=== PATIENT | female | born 1955 | race African-American/Black ===

== ENCOUNTER 2017-01-05 10:23 | Inpatient (IN) | payer OTHER ==
[2017-01-05 14:16] VITALS: BMI 25.5
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
[2017-01-05] MEDS ORDERED: MENTHOL/PHENOL 1 EACH UD MM PRN (16:03)
[2017-01-05] MEDS ORDERED: IBUPROFEN 400 MG TABLET (FP) PO PRN (16:03)
[2017-01-05] MEDS ORDERED: MAGNESIUM CITRATE 300 ML BOTTLE PO PRN (16:03)
[2017-01-05] MEDS ORDERED: ACETAMINOPHEN 325 MG TABLET (FP) PO PRN (16:03)
[2017-01-05] MEDS ORDERED: MAGNESIUM HYDROX 2400MG/30ML ORAL SUSPENSION 30 ML CUP PO PRN (16:03)
[2017-01-05] MEDS ORDERED: guaiFENesin/D-METHORPHAN HB 10 ML UNIT-DOSE CUPS PO PRN (16:03)
[2017-01-05] MEDS ORDERED: MAG HYDROX/AL HYDROX/SIMETH 30 ML UNIT-DOSE CUP PO PRN (16:03)
[2017-01-05] MEDS ORDERED: LOPERAMIDE HCL 2 MG CAPSULE PO PRN (16:03)
[2017-01-05] MEDS ORDERED: P-EPHED 60MG/TRIPROLIDI 2.5MG TABLET PO PRN (16:03)
[2017-01-05] MEDS ORDERED: DOCUSATE SODIUM 100 MG CAPSULE (FP) PO PRN (16:14)
[2017-01-05] MEDS ORDERED: TUBERCULIN PPD 5 TU/0.1ML VIAL ID ONE (18:55)
[2017-01-05] MEDS: THIAMINE HCL 100 MG TABLET (FP) PO SCH (22:18)
[2017-01-05] MEDS: SENNOSIDES 8.6MG TABLET (FP) PO SCH (22:18)
[2017-01-05 23:05] LABS: URINE APPEARANCE CLEAR; URINE BILIRUBIN NEGATIVE (NEGATIVE); URINE BLOOD NEGATIVE (NEGATIVE); URINE COLOR DKYELLOW; URINE GLUCOSE (UA) NEGATIVE (NEGATIVE); URINE KETONE TRACE (NEGATIVE); URINE LEUK ESTERASE NEGATIVE (NEGATIVE); URINE NITRITE NEGATIVE (NEGATIVE); URINE UROBILINOGEN NEGATIVE E.U./dl (0.2-1.0)
[2017-01-05 23:10] LABS: URINE PROTEIN 1+ (NEGATIVE)
[2017-01-05 23:11] LABS: URINE HYALINE CAST 3 /lpf; URINE MUCUS FEW; URINE RBC 1 /hpf (0-3); URINE WBC 4 /hpf (3-5)
[2017-01-06] MEDS: amLODIPine BESYLATE 10 MG TABLET (FP) PO SCH (09:16)
[2017-01-06] MEDS: ASPIRIN COATED 81 MG TABLET.EC PO SCH (09:16)
[2017-01-06] MEDS: LISINOPRIL 10 MG TABLET (FP) PO SCH (09:16)
[2017-01-06] MEDS: PRENATAL VITAMINS W/ FOLIC ACID TABLET (FP) PO SCH (09:16)
[2017-01-06] MEDS: ATORVASTATIN CA 20 MG TABLET (FP) PO SCH (09:16)
--- NOTE | 2017-01-06 10:07 | EKG ---
Test Reason : Blood Pressure : / mmHG Vent. Rate : 071 BPM Atrial Rate : 071 BPM P-R Int : 156 ms QRS Dur : 078 ms QT Int : 410 ms P-R-T Axes : 065 021 036 degrees QTc Int : 445 ms NORMAL SINUS RHYTHM CANNOT RULE OUT ANTERIOR INFARCT , AGE UNDETERMINED ABNORMAL ECG NO PREVIOUS ECGS AVAILABLE Confirmed by AGUEDA HARPER MD ([id number]) on 01/06/2017 10:07:24 AM Referred By: Charanjit Champion Confirmed By:AGUEDA HARPER MD
[2017-01-06 10:32] LABS: MCH 26.8 pg (25.7-33.7); MEAN CELL VOLUME 81.1 fl (80-96); MEAN PLT VOLUME 9.3 fl (7.5-11.1); PLATELET COUNT 362 K/MM3 (134-434); RDW 15.1 % (11.6-15.6); WHITE BLOOD COUNT 10.8 K/mm3 (4.0-10.0)
[2017-01-06 11:34] LABS: ALBUMIN 3.6 g/dl (3.4-5.0); ALK PHOS 105 U/L (45-117); ANION GAP 8 (8-16); BILIRUBIN,TOTAL 0.5 mg/dL (0.2-1.0); CALCIUM 9.1 mg/dL (8.5-10.1); CO2 26 mmol/L (21-32); CREATININE 0.7 mg/dL (0.55-1.02); GLUCOSE,RANDOM 89 mg/dL (74-106); SGOT/AST 15 U/L (15-37); SGPT/ALT 19 U/L (12-78); TOT PROT 7.5 g/dl (6.4-8.2)
[2017-01-06] MEDS ORDERED: PT OWN MED DRAWER 7, Y5N ONE (19:30)
[2017-01-06] MEDS: THIAMINE HCL 100 MG TABLET (FP) PO SCH (21:54)
[2017-01-06] MEDS: SENNOSIDES 8.6MG TABLET (FP) PO SCH (21:54)
[2017-01-07] MEDS ORDERED: PT OWN MED DRAWER 7, Y5N ONE ×2 (08:37→17:41)
[2017-01-07] MEDS: ASPIRIN COATED 81 MG TABLET.EC PO SCH (09:58)
[2017-01-07] MEDS: LISINOPRIL 10 MG TABLET (FP) PO SCH (09:59)
[2017-01-07] MEDS: ATORVASTATIN CA 20 MG TABLET (FP) PO SCH (09:59)
[2017-01-07] MEDS: amLODIPine BESYLATE 10 MG TABLET (FP) PO SCH (09:59)
[2017-01-07] MEDS: PRENATAL VITAMINS W/ FOLIC ACID TABLET (FP) PO SCH (09:59)
[2017-01-07] MEDS: THIAMINE HCL 100 MG TABLET (FP) PO SCH (22:06)
[2017-01-07] MEDS: SENNOSIDES 8.6MG TABLET (FP) PO SCH (22:07)
[2017-01-08] MEDS: ATORVASTATIN CA 20 MG TABLET (FP) PO SCH (10:33)
[2017-01-08] MEDS: PRENATAL VITAMINS W/ FOLIC ACID TABLET (FP) PO SCH (10:33)
[2017-01-08] MEDS: LISINOPRIL 10 MG TABLET (FP) PO SCH (10:33)
[2017-01-08] MEDS: amLODIPine BESYLATE 10 MG TABLET (FP) PO SCH (10:33)
[2017-01-08] MEDS: ASPIRIN COATED 81 MG TABLET.EC PO SCH (10:33)
[2017-01-08] MEDS ORDERED: COLLOIDAL OATMEAL 1 BAR EACH TP PRN (13:43)
[2017-01-08] MEDS ORDERED: PT OWN MED DRAWER 7, Y5N ONE (19:44)
[2017-01-08] MEDS: THIAMINE HCL 100 MG TABLET (FP) PO SCH (21:43)
[2017-01-08] MEDS: SENNOSIDES 8.6MG TABLET (FP) PO SCH (21:43)
[2017-01-09] MEDS: amLODIPine BESYLATE 10 MG TABLET (FP) PO SCH (10:25)
[2017-01-09] MEDS: ASPIRIN COATED 81 MG TABLET.EC PO SCH (10:25)
[2017-01-09] MEDS: LISINOPRIL 10 MG TABLET (FP) PO SCH (10:25)
[2017-01-09] MEDS: ATORVASTATIN CA 20 MG TABLET (FP) PO SCH (10:25)
[2017-01-09] MEDS: PRENATAL VITAMINS W/ FOLIC ACID TABLET (FP) PO SCH (10:25)
[2017-01-09] MEDS: SENNOSIDES 8.6MG TABLET (FP) PO SCH (21:48)
[2017-01-09] MEDS: THIAMINE HCL 100 MG TABLET (FP) PO SCH (21:48)
[2017-01-10] MEDS: ATORVASTATIN CA 20 MG TABLET (FP) PO SCH (10:22)
[2017-01-10] MEDS: PRENATAL VITAMINS W/ FOLIC ACID TABLET (FP) PO SCH (10:22)
[2017-01-10] MEDS: ASPIRIN COATED 81 MG TABLET.EC PO SCH (10:23)
[2017-01-10] MEDS: LISINOPRIL 10 MG TABLET (FP) PO SCH (10:23)
[2017-01-10] MEDS: amLODIPine BESYLATE 10 MG TABLET (FP) PO SCH (10:23)
[2017-01-10] MEDS: SENNOSIDES 8.6MG TABLET (FP) PO SCH (21:36)
[2017-01-10] MEDS: THIAMINE HCL 100 MG TABLET (FP) PO SCH (21:36)
[2017-01-10] MEDS: diphenhydrAMINE HCL 50 MG CAPSULE PO PRN (21:36)
[2017-01-11] MEDS: ATORVASTATIN CA 20 MG TABLET (FP) PO SCH (10:47)
[2017-01-11] MEDS: LISINOPRIL 10 MG TABLET (FP) PO SCH (10:47)
[2017-01-11] MEDS: PRENATAL VITAMINS W/ FOLIC ACID TABLET (FP) PO SCH (10:47)
[2017-01-11] MEDS: ASPIRIN COATED 81 MG TABLET.EC PO SCH (10:47)
[2017-01-11] MEDS: amLODIPine BESYLATE 10 MG TABLET (FP) PO SCH (10:47)
[2017-01-11] MEDS: THIAMINE HCL 100 MG TABLET (FP) PO SCH (21:33)
[2017-01-11] MEDS: SENNOSIDES 8.6MG TABLET (FP) PO SCH (21:33)
[2017-01-12] MEDS: PRENATAL VITAMINS W/ FOLIC ACID TABLET (FP) PO SCH (10:30)
[2017-01-12] MEDS: LISINOPRIL 10 MG TABLET (FP) PO SCH (10:31)
[2017-01-12] MEDS: amLODIPine BESYLATE 10 MG TABLET (FP) PO SCH (10:31)
[2017-01-12] MEDS: ASPIRIN COATED 81 MG TABLET.EC PO SCH (10:31)
[2017-01-12] MEDS: ATORVASTATIN CA 20 MG TABLET (FP) PO SCH (10:31)
[2017-01-12] MEDS: THIAMINE HCL 100 MG TABLET (FP) PO SCH (21:47)
[2017-01-12] MEDS: SENNOSIDES 8.6MG TABLET (FP) PO SCH (21:47)
[2017-01-13] MEDS: PRENATAL VITAMINS W/ FOLIC ACID TABLET (FP) PO SCH (10:13)
[2017-01-13] MEDS: amLODIPine BESYLATE 10 MG TABLET (FP) PO SCH (10:13)
[2017-01-13] MEDS: ATORVASTATIN CA 20 MG TABLET (FP) PO SCH (10:13)
[2017-01-13] MEDS: ASPIRIN COATED 81 MG TABLET.EC PO SCH (10:13)
[2017-01-13] MEDS: LISINOPRIL 10 MG TABLET (FP) PO SCH (10:13)
[2017-01-13] MEDS: THIAMINE HCL 100 MG TABLET (FP) PO SCH (21:28)
[2017-01-13] MEDS: SENNOSIDES 8.6MG TABLET (FP) PO SCH (21:28)
[2017-01-14] MEDS: PRENATAL VITAMINS W/ FOLIC ACID TABLET (FP) PO SCH (10:15)
[2017-01-14] MEDS: ASPIRIN COATED 81 MG TABLET.EC PO SCH (10:15)
[2017-01-14] MEDS: amLODIPine BESYLATE 10 MG TABLET (FP) PO SCH (10:15)
[2017-01-14] MEDS: LISINOPRIL 10 MG TABLET (FP) PO SCH (10:15)
[2017-01-14] MEDS: ATORVASTATIN CA 20 MG TABLET (FP) PO SCH (10:15)
[2017-01-14] MEDS: THIAMINE HCL 100 MG TABLET (FP) PO SCH (21:36)
[2017-01-14] MEDS: SENNOSIDES 8.6MG TABLET (FP) PO SCH (21:36)
[2017-01-15] MEDS: PRENATAL VITAMINS W/ FOLIC ACID TABLET (FP) PO SCH (10:21)
[2017-01-15] MEDS: amLODIPine BESYLATE 10 MG TABLET (FP) PO SCH (10:21)
[2017-01-15] MEDS: ASPIRIN COATED 81 MG TABLET.EC PO SCH (10:21)
[2017-01-15] MEDS: ATORVASTATIN CA 20 MG TABLET (FP) PO SCH (10:21)
[2017-01-15] MEDS: LISINOPRIL 10 MG TABLET (FP) PO SCH (10:21)
[2017-01-15] MEDS: SENNOSIDES 8.6MG TABLET (FP) PO SCH (21:24)
[2017-01-15] MEDS: THIAMINE HCL 100 MG TABLET (FP) PO SCH (21:24)
[2017-01-16] MEDS: ASPIRIN COATED 81 MG TABLET.EC PO SCH (10:05)
[2017-01-16] MEDS: amLODIPine BESYLATE 10 MG TABLET (FP) PO SCH (10:05)
[2017-01-16] MEDS: ATORVASTATIN CA 20 MG TABLET (FP) PO SCH (10:05)
[2017-01-16] MEDS: LISINOPRIL 10 MG TABLET (FP) PO SCH (10:05)
[2017-01-16] MEDS: PRENATAL VITAMINS W/ FOLIC ACID TABLET (FP) PO SCH (10:05)
[2017-01-16] MEDS: SENNOSIDES 8.6MG TABLET (FP) PO SCH (21:30)
[2017-01-16] MEDS: diphenhydrAMINE HCL 50 MG CAPSULE PO PRN (21:30)
[2017-01-16] MEDS: THIAMINE HCL 100 MG TABLET (FP) PO SCH (21:30)
[2017-01-17] MEDS: ATORVASTATIN CA 20 MG TABLET (FP) PO SCH (10:10)
[2017-01-17] MEDS: ASPIRIN COATED 81 MG TABLET.EC PO SCH (10:10)
[2017-01-17] MEDS: amLODIPine BESYLATE 10 MG TABLET (FP) PO SCH (10:10)
[2017-01-17] MEDS: PRENATAL VITAMINS W/ FOLIC ACID TABLET (FP) PO SCH (10:10)
[2017-01-17] MEDS: LISINOPRIL 10 MG TABLET (FP) PO SCH (10:11)
[2017-01-17] MEDS: THIAMINE HCL 100 MG TABLET (FP) PO SCH (21:27)
[2017-01-17] MEDS: diphenhydrAMINE HCL 50 MG CAPSULE PO PRN (21:27)
[2017-01-17] MEDS: SENNOSIDES 8.6MG TABLET (FP) PO SCH (21:27)
[2017-01-18] MEDS: ATORVASTATIN CA 20 MG TABLET (FP) PO SCH (10:10)
[2017-01-18] MEDS: ASPIRIN COATED 81 MG TABLET.EC PO SCH (10:10)
[2017-01-18] MEDS: amLODIPine BESYLATE 10 MG TABLET (FP) PO SCH (10:10)
[2017-01-18] MEDS: PRENATAL VITAMINS W/ FOLIC ACID TABLET (FP) PO SCH (10:10)
[2017-01-18] MEDS: LISINOPRIL 10 MG TABLET (FP) PO SCH (10:10)
[2017-01-18] MEDS: SENNOSIDES 8.6MG TABLET (FP) PO SCH (21:34)
[2017-01-18] MEDS: THIAMINE HCL 100 MG TABLET (FP) PO SCH (21:34)
[2017-01-18] MEDS: diphenhydrAMINE HCL 50 MG CAPSULE PO PRN (21:35)
[2017-01-19] MEDS: LISINOPRIL 10 MG TABLET (FP) PO SCH (10:07)
[2017-01-19] MEDS: ASPIRIN COATED 81 MG TABLET.EC PO SCH (10:07)
[2017-01-19] MEDS: ATORVASTATIN CA 20 MG TABLET (FP) PO SCH (10:07)
[2017-01-19] MEDS: amLODIPine BESYLATE 10 MG TABLET (FP) PO SCH (10:07)
[2017-01-19] MEDS: PRENATAL VITAMINS W/ FOLIC ACID TABLET (FP) PO SCH (10:07)
[2017-01-19] MEDS: SENNOSIDES 8.6MG TABLET (FP) PO SCH (21:09)
[2017-01-19] MEDS: THIAMINE HCL 100 MG TABLET (FP) PO SCH (21:09)
[2017-01-19] MEDS: diphenhydrAMINE HCL 50 MG CAPSULE PO PRN (21:09)
[2017-01-20] MEDS: ASPIRIN COATED 81 MG TABLET.EC PO SCH (09:54)
[2017-01-20] MEDS: PRENATAL VITAMINS W/ FOLIC ACID TABLET (FP) PO SCH (09:54)
[2017-01-20] MEDS: LISINOPRIL 10 MG TABLET (FP) PO SCH (09:54)
[2017-01-20] MEDS: ATORVASTATIN CA 20 MG TABLET (FP) PO SCH (09:54)
[2017-01-20] MEDS: amLODIPine BESYLATE 10 MG TABLET (FP) PO SCH (09:54)
[2017-01-20] MEDS: SENNOSIDES 8.6MG TABLET (FP) PO SCH (21:30)
[2017-01-20] MEDS: THIAMINE HCL 100 MG TABLET (FP) PO SCH (21:30)
[2017-01-20] MEDS: diphenhydrAMINE HCL 50 MG CAPSULE PO PRN (21:30)
[2017-01-21] MEDS: ATORVASTATIN CA 20 MG TABLET (FP) PO SCH (10:06)
[2017-01-21] MEDS: LISINOPRIL 10 MG TABLET (FP) PO SCH (10:06)
[2017-01-21] MEDS: ASPIRIN COATED 81 MG TABLET.EC PO SCH (10:06)
[2017-01-21] MEDS: amLODIPine BESYLATE 10 MG TABLET (FP) PO SCH (10:07)
[2017-01-21] MEDS: PRENATAL VITAMINS W/ FOLIC ACID TABLET (FP) PO SCH (10:07)
[2017-01-21] MEDS: THIAMINE HCL 100 MG TABLET (FP) PO SCH (21:26)
[2017-01-21] MEDS: diphenhydrAMINE HCL 50 MG CAPSULE PO PRN (21:26)
[2017-01-21] MEDS: SENNOSIDES 8.6MG TABLET (FP) PO SCH (21:26)
[2017-01-22] MEDS ORDERED: PT OWN MED DRAWER 7, Y5N ONE (08:28)
[2017-01-22] MEDS: amLODIPine BESYLATE 10 MG TABLET (FP) PO SCH (10:19)
[2017-01-22] MEDS: ASPIRIN COATED 81 MG TABLET.EC PO SCH (10:19)
[2017-01-22] MEDS: PRENATAL VITAMINS W/ FOLIC ACID TABLET (FP) PO SCH (10:19)
[2017-01-22] MEDS: ATORVASTATIN CA 20 MG TABLET (FP) PO SCH (10:19)
[2017-01-22] MEDS: LISINOPRIL 10 MG TABLET (FP) PO SCH (10:20)
[2017-01-22] MEDS: SENNOSIDES 8.6MG TABLET (FP) PO SCH (21:30)
[2017-01-22] MEDS: THIAMINE HCL 100 MG TABLET (FP) PO SCH (21:30)
[2017-01-22] MEDS: diphenhydrAMINE HCL 50 MG CAPSULE PO PRN (21:31)
[2017-01-23] MEDS: LISINOPRIL 10 MG TABLET (FP) PO SCH (10:14)
[2017-01-23] MEDS: ASPIRIN COATED 81 MG TABLET.EC PO SCH (10:14)
[2017-01-23] MEDS: ATORVASTATIN CA 20 MG TABLET (FP) PO SCH (10:14)
[2017-01-23] MEDS: amLODIPine BESYLATE 10 MG TABLET (FP) PO SCH (10:14)
[2017-01-23] MEDS: PRENATAL VITAMINS W/ FOLIC ACID TABLET (FP) PO SCH (10:15)
[2017-01-23] MEDS: SENNOSIDES 8.6MG TABLET (FP) PO SCH (21:44)
[2017-01-23] MEDS: diphenhydrAMINE HCL 50 MG CAPSULE PO PRN (21:44)
[2017-01-23] MEDS: THIAMINE HCL 100 MG TABLET (FP) PO SCH (21:44)
[2017-01-24] MEDS: ATORVASTATIN CA 20 MG TABLET (FP) PO SCH (10:12)
[2017-01-24] MEDS: amLODIPine BESYLATE 10 MG TABLET (FP) PO SCH (10:12)
[2017-01-24] MEDS: LISINOPRIL 10 MG TABLET (FP) PO SCH (10:12)
[2017-01-24] MEDS: ASPIRIN COATED 81 MG TABLET.EC PO SCH (10:12)
[2017-01-24] MEDS: PRENATAL VITAMINS W/ FOLIC ACID TABLET (FP) PO SCH (10:13)
[2017-01-24] MEDS: SENNOSIDES 8.6MG TABLET (FP) PO SCH (21:44)
[2017-01-24] MEDS: THIAMINE HCL 100 MG TABLET (FP) PO SCH (21:44)
[2017-01-24] MEDS: diphenhydrAMINE HCL 50 MG CAPSULE PO PRN (21:45)
[2017-01-25] MEDS: PRENATAL VITAMINS W/ FOLIC ACID TABLET (FP) PO SCH (10:21)
[2017-01-25] MEDS: ATORVASTATIN CA 20 MG TABLET (FP) PO SCH (10:21)
[2017-01-25] MEDS: amLODIPine BESYLATE 10 MG TABLET (FP) PO SCH (10:21)
[2017-01-25] MEDS: LISINOPRIL 10 MG TABLET (FP) PO SCH (10:21)
[2017-01-25] MEDS: ASPIRIN COATED 81 MG TABLET.EC PO SCH (10:21)
[2017-01-25] MEDS: SENNOSIDES 8.6MG TABLET (FP) PO SCH (21:32)
[2017-01-25] MEDS: THIAMINE HCL 100 MG TABLET (FP) PO SCH (21:32)
[2017-01-25] MEDS: diphenhydrAMINE HCL 50 MG CAPSULE PO PRN (21:32)
[2017-01-26] MEDS: ASPIRIN COATED 81 MG TABLET.EC PO SCH (10:31)
[2017-01-26] MEDS: ATORVASTATIN CA 20 MG TABLET (FP) PO SCH (10:31)
[2017-01-26] MEDS: LISINOPRIL 10 MG TABLET (FP) PO SCH (10:31)
[2017-01-26] MEDS: amLODIPine BESYLATE 10 MG TABLET (FP) PO SCH (10:31)
[2017-01-26] MEDS: PRENATAL VITAMINS W/ FOLIC ACID TABLET (FP) PO SCH (10:31)
[2017-01-26] MEDS: diphenhydrAMINE HCL 50 MG CAPSULE PO PRN (21:50)
[2017-01-26] MEDS: THIAMINE HCL 100 MG TABLET (FP) PO SCH (21:51)
[2017-01-26] MEDS: SENNOSIDES 8.6MG TABLET (FP) PO SCH (21:51)
[2017-01-27] MEDS: diphenhydrAMINE HCL 50 MG CAPSULE PO PRN ×2 (00:18→21:42)
[2017-01-27] MEDS: ATORVASTATIN CA 20 MG TABLET (FP) PO SCH (10:06)
[2017-01-27] MEDS: amLODIPine BESYLATE 10 MG TABLET (FP) PO SCH (10:06)
[2017-01-27] MEDS: ASPIRIN COATED 81 MG TABLET.EC PO SCH (10:06)
[2017-01-27] MEDS: PRENATAL VITAMINS W/ FOLIC ACID TABLET (FP) PO SCH (10:06)
[2017-01-27] MEDS: LISINOPRIL 10 MG TABLET (FP) PO SCH (10:07)
[2017-01-27] MEDS: THIAMINE HCL 100 MG TABLET (FP) PO SCH (21:42)
[2017-01-27] MEDS: SENNOSIDES 8.6MG TABLET (FP) PO SCH (21:42)
[2017-01-28] MEDS: amLODIPine BESYLATE 10 MG TABLET (FP) PO SCH (10:10)
[2017-01-28] MEDS: PRENATAL VITAMINS W/ FOLIC ACID TABLET (FP) PO SCH (10:10)
[2017-01-28] MEDS: LISINOPRIL 10 MG TABLET (FP) PO SCH (10:10)
[2017-01-28] MEDS: ASPIRIN COATED 81 MG TABLET.EC PO SCH (10:10)
[2017-01-28] MEDS: ATORVASTATIN CA 20 MG TABLET (FP) PO SCH (10:10)
[2017-01-28] MEDS: diphenhydrAMINE HCL 50 MG CAPSULE PO PRN (21:48)
[2017-01-28] MEDS: SENNOSIDES 8.6MG TABLET (FP) PO SCH (21:49)
[2017-01-28] MEDS: THIAMINE HCL 100 MG TABLET (FP) PO SCH (21:49)
[2017-01-29] MEDS: PRENATAL VITAMINS W/ FOLIC ACID TABLET (FP) PO SCH (10:15)
[2017-01-29] MEDS: ASPIRIN COATED 81 MG TABLET.EC PO SCH (10:15)
[2017-01-29] MEDS: ATORVASTATIN CA 20 MG TABLET (FP) PO SCH (10:15)
[2017-01-29] MEDS: amLODIPine BESYLATE 10 MG TABLET (FP) PO SCH (10:15)
[2017-01-29] MEDS: LISINOPRIL 10 MG TABLET (FP) PO SCH (10:16)
--- NOTE | 2017-01-29 14:42 | PN ---
[facility] Progress Note Note: Blister rt. index,clear fluid drained,bacitracin sathya't applied & covered.
[2017-01-29] MEDS: BACITRACIN 0.9 GM PACKET TP SCH (15:34)
[2017-01-29] MEDS: diphenhydrAMINE HCL 50 MG CAPSULE PO PRN (21:42)
[2017-01-29] MEDS: SENNOSIDES 8.6MG TABLET (FP) PO SCH (21:42)
[2017-01-29] MEDS: THIAMINE HCL 100 MG TABLET (FP) PO SCH (21:42)
[2017-01-30] MEDS: PRENATAL VITAMINS W/ FOLIC ACID TABLET (FP) PO SCH (10:33)
[2017-01-30] MEDS: ASPIRIN COATED 81 MG TABLET.EC PO SCH (10:33)
[2017-01-30] MEDS: amLODIPine BESYLATE 10 MG TABLET (FP) PO SCH (10:33)
[2017-01-30] MEDS: LISINOPRIL 10 MG TABLET (FP) PO SCH (10:33)
[2017-01-30] MEDS: ATORVASTATIN CA 20 MG TABLET (FP) PO SCH (10:33)
[2017-01-30] MEDS: BACITRACIN 0.9 GM PACKET TP SCH (10:33)
[2017-01-30] MEDS: SENNOSIDES 8.6MG TABLET (FP) PO SCH (21:36)
[2017-01-30] MEDS: THIAMINE HCL 100 MG TABLET (FP) PO SCH (21:36)
[2017-01-30] MEDS: diphenhydrAMINE HCL 50 MG CAPSULE PO PRN (21:36)
[2017-01-31] MEDS: amLODIPine BESYLATE 10 MG TABLET (FP) PO SCH (10:21)
[2017-01-31] MEDS: BACITRACIN 0.9 GM PACKET TP SCH (10:21)
[2017-01-31] MEDS: ASPIRIN COATED 81 MG TABLET.EC PO SCH (10:21)
[2017-01-31] MEDS: PRENATAL VITAMINS W/ FOLIC ACID TABLET (FP) PO SCH (10:21)
[2017-01-31] MEDS: ATORVASTATIN CA 20 MG TABLET (FP) PO SCH (10:21)
[2017-01-31] MEDS: LISINOPRIL 10 MG TABLET (FP) PO SCH (10:22)
[2017-01-31] MEDS: THIAMINE HCL 100 MG TABLET (FP) PO SCH (21:33)
[2017-01-31] MEDS: SENNOSIDES 8.6MG TABLET (FP) PO SCH (21:33)
[2017-01-31] MEDS: diphenhydrAMINE HCL 50 MG CAPSULE PO PRN (21:33)
[2017-02-01] MEDS: ASPIRIN COATED 81 MG TABLET.EC PO SCH (10:09)
[2017-02-01] MEDS: PRENATAL VITAMINS W/ FOLIC ACID TABLET (FP) PO SCH (10:09)
[2017-02-01] MEDS: ATORVASTATIN CA 20 MG TABLET (FP) PO SCH (10:09)
[2017-02-01] MEDS: BACITRACIN 0.9 GM PACKET TP SCH (10:09)
[2017-02-01] MEDS: amLODIPine BESYLATE 10 MG TABLET (FP) PO SCH (10:09)
[2017-02-01] MEDS: LISINOPRIL 10 MG TABLET (FP) PO SCH (10:09)
[2017-02-01] MEDS: diphenhydrAMINE HCL 50 MG CAPSULE PO PRN (21:37)
[2017-02-01] MEDS: THIAMINE HCL 100 MG TABLET (FP) PO SCH (21:37)
[2017-02-01] MEDS: SENNOSIDES 8.6MG TABLET (FP) PO SCH (21:37)
[2017-02-02] MEDS: diphenhydrAMINE HCL 50 MG CAPSULE PO PRN (01:35)
[2017-02-02 07:16] VITALS: TEMP 97.8
[2017-02-02] MEDS: amLODIPine BESYLATE 10 MG TABLET (FP) PO SCH (09:37)
[2017-02-02] MEDS: ATORVASTATIN CA 20 MG TABLET (FP) PO SCH (09:37)
[2017-02-02] MEDS: ASPIRIN COATED 81 MG TABLET.EC PO SCH (09:37)
[2017-02-02] MEDS: LISINOPRIL 10 MG TABLET (FP) PO SCH (09:38)
[2017-02-02] MEDS: PRENATAL VITAMINS W/ FOLIC ACID TABLET (FP) PO SCH (09:38)
[2017-02-02 10:17] VITALS: BP 141/80; PULSE 106
--- NOTE | 2017-02-02 14:39 | PN ---
S Progress Note Note: Called by nurse staff for discharge order for patient. According to staff, patient was discharged today and referred to [facility] for outpatient treatment. She was stable on discharge
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
== END 2017-02-02 09:42 | disposition home or self-care (01) | DRG 772 ==
LOC: YASAS 10:23 → Y3E 16:32
PROVIDERS: ADMIT Psychiatry & Neurology Psychiatry; ATTEND Psychiatry & Neurology Psychiatry
PROC: HZ42ZZZ Group Counseling for Substance Abuse Treatment, Cognitive-Behavioral (ICD-10-PCS; principal; 2017-02-02)
DX: F10.230 Alcohol dependence with withdrawal, uncomplicated (principal); F14.20 Cocaine dependence, uncomplicated; I10 Essential (primary) hypertension; D64.9 Anemia, unspecified; E11.9 Type 2 diabetes mellitus without complications; F39 Unspecified mood [affective] disorder; I69.851 Hemiplegia and hemiparesis following other cerebrovascular disease affecting right dominant side; Z87.440 Personal history of urinary (tract) infections; R26.89 Other abnormalities of gait and mobility; Z99.89 Dependence on other enabling machines and devices
CPT/HCPCS: 36415; 80053; 81003; 81015; 85027; 85660; 86593; 93005; 93010

== ENCOUNTER 2018-01-10 10:22 | Inpatient (IN) | payer OTHER ==
[2018-01-10 11:53] VITALS: BMI 25.0
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
[2018-01-10] MEDS ORDERED: P-EPHED 60MG/TRIPROLIDI 2.5MG TABLET PO PRN (13:14)
[2018-01-10] MEDS ORDERED: NICOTINE POLACRILEX 2 MG GUM BUC PRN (13:14)
[2018-01-10] MEDS ORDERED: LOPERAMIDE HCL 2 MG CAPSULE PO PRN (13:14)
[2018-01-10] MEDS ORDERED: MAGNESIUM HYDROX 2400MG/30ML ORAL SUSPENSION 30 ML CUP PO PRN (13:14)
[2018-01-10] MEDS ORDERED: MAGNESIUM CITRATE 300 ML BOTTLE PO PRN (13:14)
[2018-01-10] MEDS ORDERED: MAG HYDROX/AL HYDROX/SIMETH 30 ML UNIT-DOSE CUP PO PRN (13:14)
[2018-01-10] MEDS ORDERED: MENTHOL/PHENOL 1 EACH UD MM PRN (13:14)
[2018-01-10] MEDS ORDERED: DOCUSATE SODIUM 100 MG CAPSULE (FP) PO PRN (13:16)
[2018-01-10] MEDS: NICOTINE 14 MG/24 HOURS TOPICAL PATCH TD SCH (15:44)
[2018-01-10 19:36] LABS: URINE APPEARANCE TURBID; URINE BILIRUBIN NEGATIVE (<2.0 mg/dL); URINE COLOR AMBER; URINE GLUCOSE (UA) NEGATIVE (NEGATIVE); URINE KETONE TRACE (NEGATIVE); URINE LEUK ESTERASE NEGATIVE (NEGATIVE); URINE NITRITE NEGATIVE (NEGATIVE); URINE PROTEIN NEGATIVE (NEGATIVE)
[2018-01-10 19:36] LABS: HEMOGLOBIN 12.3 GM/dL (10.7-15.3); MCH 27.2 pg (25.7-33.7); MCHC 33.3 g/dl (32.0-36.0); MEAN CELL VOLUME 81.8 fl (80-96); MEAN PLT VOLUME 9.6 fl (7.5-11.1); PLATELET COUNT 414 K/MM3 (134-434); RBC 4.52 M/mm3 (3.60-5.2); RDW 14.9 % (11.6-15.6); WHITE BLOOD COUNT 11.1 K/mm3 (4.0-10.0)
[2018-01-10 19:50] LABS: ALBUMIN 3.9 g/dl (3.4-5.0); ANION GAP 9 (8-16); BILIRUBIN,TOTAL 0.2 mg/dL (0.2-1.0); BLOOD UREA NITROGEN 22 mg/dL (7-18); CALCIUM 9.6 mg/dL (8.5-10.1); CHLORIDE 105 mmol/L (98-107); CO2 26 mmol/L (21-32); CREATININE 0.9 mg/dL (0.55-1.02); GLUCOSE,RANDOM 128 mg/dL (74-106); POTASSIUM 3.7 mmol/L (3.5-5.1); SGOT/AST 11 U/L (15-37); SGPT/ALT 12 U/L (12-78); SODIUM 140 mmol/L (136-145)
[2018-01-10 19:51] LABS: ALK PHOS 102 U/L (45-117)
[2018-01-10] MEDS: SENNOSIDES 8.6MG TABLET (FP) PO SCH (21:27)
[2018-01-10] MEDS: THIAMINE HCL 100 MG TABLET (FP) PO SCH (21:27)
[2018-01-10] MEDS ORDERED: SENNOSIDES 8.6MG TABLET (FP) PO SCH ×2 (22:00)
[2018-01-11] MEDS: ACETAMINOPHEN 325 MG TABLET (FP) PO PRN (06:19)
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
--- NOTE | 2018-01-11 10:06 | EKG ---
Test Reason : Blood Pressure : / mmHG Vent. Rate : 054 BPM Atrial Rate : 054 BPM P-R Int : 162 ms QRS Dur : 080 ms QT Int : 438 ms P-R-T Axes : 048 012 023 degrees QTc Int : 415 ms SINUS BRADYCARDIA CANNOT RULE OUT ANTERIOR INFARCT (CITED ON OR BEFORE 05-JAN-2017) ABNORMAL ECG WHEN COMPARED WITH ECG OF 05-JAN-2017 20:53, NO SIGNIFICANT CHANGE WAS FOUND Confirmed by AGUEDA HARPER MD ([id number]) on 01/11/2018 10:06:05 AM Referred By: Confirmed By:AGUEDA HARPER MD
[2018-01-11] MEDS: NICOTINE 14 MG/24 HOURS TOPICAL PATCH TD SCH (10:51)
[2018-01-11] MEDS: ASPIRIN COATED 81 MG TABLET.EC PO SCH (10:52)
[2018-01-11] MEDS: LISINOPRIL 10 MG TABLET (FP) PO SCH (10:52)
[2018-01-11] MEDS: amLODIPine BESYLATE 10 MG TABLET (FP) PO SCH (10:52)
[2018-01-11] MEDS: PRENATAL VITAMINS W/ FOLIC ACID TABLET (FP) PO SCH (10:52)
[2018-01-11] MEDS ORDERED: COLLOIDAL OATMEAL 1 BAR EACH TP PRN (13:06)
--- NOTE | 2018-01-11 15:00 | PN ---
[facility] Progress Note Note: CBC shows WBC 11.1. CXR negative for acute pathology. Pt afebrile. Will repeat CBC on 01/14/18. Vital Signs Temperature 97.8 F 01/11/18 06:40 Pulse Rate 89 01/11/18 10:05 Respiratory Rate 18 01/11/18 06:40 Blood Pressure 129/82 01/11/18 10:05 O2 Sat by Pulse Oximetry (%) Laboratory Tests 01/10/18 01/10/18 01/10/18 13:14 13:14 13:14 WBC 11.1 H RBC 4.52 Hgb 12.3 Hct 37.0 MCV 81.8 MCH 27.2 MCHC 33.3 RDW 14.9 Plt Count 414 MPV 9.6 Sodium 140 Potassium 3.7 Chloride 105 Carbon Dioxide 26 Anion Gap 9 BUN 22 H Creatinine 0.9 Creat Clearance w eGFR > 60 Random Glucose 128 H Calcium 9.6 Total Bilirubin 0.2 D AST 11 L ALT 12 Alkaline Phosphatase 102 Total Protein 8.0 Albumin 3.9 Urine Color Urine Appearance Urine pH Ur Specific [place] Urine Protein Urine Glucose (UA) Urine Ketones Urine Blood Urine Nitrite Urine Bilirubin Urine Urobilinogen Ur Leukocyte Esterase RPR Titer Nonreactive 01/10/18 15:00 WBC RBC Hgb Hct MCV MCH MCHC RDW Plt Count MPV Sodium Potassium Chloride Carbon Dioxide Anion Gap BUN Creatinine Creat Clearance w eGFR Random Glucose Calcium Total Bilirubin AST ALT Alkaline Phosphatase Total Protein Albumin Urine Color [place] Urine Appearance Turbid Urine pH 5.0 Ur Specific [place] 1.027 Urine Protein Negative Urine Glucose (UA) Negative Urine Ketones Trace H Urine Blood Negative Urine Nitrite Negative Urine Bilirubin Negative Urine Urobilinogen 2.0 H Ur Leukocyte Esterase Negative RPR Titer
[2018-01-11] MEDS: SENNOSIDES 8.6MG TABLET (FP) PO SCH (21:20)
[2018-01-11] MEDS: traZODone HCL 50 MG TABLET (FP) PO SCH (21:21)
[2018-01-11] MEDS: THIAMINE HCL 100 MG TABLET (FP) PO SCH (21:21)
[2018-01-11] MEDS: ATORVASTATIN CA 20 MG TABLET (FP) PO SCH (21:21)
[2018-01-12] MEDS: PRENATAL VITAMINS W/ FOLIC ACID TABLET (FP) PO SCH (09:57)
[2018-01-12] MEDS: LISINOPRIL 10 MG TABLET (FP) PO SCH (09:57)
[2018-01-12] MEDS: ASPIRIN COATED 81 MG TABLET.EC PO SCH (09:58)
[2018-01-12] MEDS: amLODIPine BESYLATE 10 MG TABLET (FP) PO SCH (09:58)
[2018-01-12] MEDS: ATORVASTATIN CA 20 MG TABLET (FP) PO SCH (09:58)
[2018-01-12] MEDS: NICOTINE 14 MG/24 HOURS TOPICAL PATCH TD SCH (09:58)
[2018-01-12] MEDS: traZODone HCL 50 MG TABLET (FP) PO SCH (21:19)
[2018-01-12] MEDS: THIAMINE HCL 100 MG TABLET (FP) PO SCH (21:19)
[2018-01-12] MEDS: SENNOSIDES 8.6MG TABLET (FP) PO SCH (21:19)
[2018-01-13] MEDS: guaiFENesin/D-METHORPHAN HB 10 ML UNIT-DOSE CUPS PO PRN ×2 (03:44→10:27)
[2018-01-13] MEDS: NICOTINE 14 MG/24 HOURS TOPICAL PATCH TD SCH (09:50)
[2018-01-13] MEDS: ATORVASTATIN CA 20 MG TABLET (FP) PO SCH (09:51)
[2018-01-13] MEDS: amLODIPine BESYLATE 10 MG TABLET (FP) PO SCH (09:51)
[2018-01-13] MEDS: PRENATAL VITAMINS W/ FOLIC ACID TABLET (FP) PO SCH (09:51)
[2018-01-13] MEDS: ASPIRIN COATED 81 MG TABLET.EC PO SCH (09:51)
[2018-01-13] MEDS: LISINOPRIL 10 MG TABLET (FP) PO SCH (09:51)
[2018-01-13] MEDS: ACETAMINOPHEN 325 MG TABLET (FP) PO PRN (09:52)
[2018-01-13] MEDS: MELATONIN 5 MG TABLETS PO PRN (21:36)
[2018-01-13] MEDS: THIAMINE HCL 100 MG TABLET (FP) PO SCH (21:36)
[2018-01-13] MEDS: traZODone HCL 50 MG TABLET (FP) PO SCH (21:36)
[2018-01-13] MEDS: SENNOSIDES 8.6MG TABLET (FP) PO SCH (21:36)
[2018-01-14 09:48] LABS: HEMATOCRIT 36.6 % (32.4-45.2); HEMOGLOBIN 12.1 GM/dL (10.7-15.3); MEAN CELL VOLUME 81.8 fl (80-96); MEAN PLT VOLUME 9.1 fl (7.5-11.1); PLATELET COUNT 391 K/MM3 (134-434); RBC 4.48 M/mm3 (3.60-5.2); WHITE BLOOD COUNT 10.1 K/mm3 (4.0-10.0)
[2018-01-14] MEDS: amLODIPine BESYLATE 10 MG TABLET (FP) PO SCH (10:11)
[2018-01-14] MEDS: ATORVASTATIN CA 20 MG TABLET (FP) PO SCH (10:11)
[2018-01-14] MEDS: PRENATAL VITAMINS W/ FOLIC ACID TABLET (FP) PO SCH (10:11)
[2018-01-14] MEDS: NICOTINE 14 MG/24 HOURS TOPICAL PATCH TD SCH (10:11)
[2018-01-14] MEDS: ASPIRIN COATED 81 MG TABLET.EC PO SCH (10:11)
[2018-01-14] MEDS: LISINOPRIL 10 MG TABLET (FP) PO SCH (10:11)
--- NOTE | 2018-01-14 12:11 | PN ---
[facility] Progress Note Note: Pt labs reviewed. WBC 11.1 and repeated. Last WBC 10.1. Pt afebrile and Urine negative for bacteria and nitrates. Will repeat CBC again 01/17/18. Continue to monitor clinically.
[2018-01-14] MEDS: THIAMINE HCL 100 MG TABLET (FP) PO SCH (21:22)
[2018-01-14] MEDS: SENNOSIDES 8.6MG TABLET (FP) PO SCH (21:22)
[2018-01-14] MEDS: traZODone HCL 50 MG TABLET (FP) PO SCH (21:22)
[2018-01-14] MEDS: MELATONIN 5 MG TABLETS PO PRN (21:23)
[2018-01-15] MEDS: NICOTINE 14 MG/24 HOURS TOPICAL PATCH TD SCH (10:16)
[2018-01-15] MEDS: ATORVASTATIN CA 20 MG TABLET (FP) PO SCH (10:17)
[2018-01-15] MEDS: LISINOPRIL 10 MG TABLET (FP) PO SCH (10:17)
[2018-01-15] MEDS: amLODIPine BESYLATE 10 MG TABLET (FP) PO SCH (10:17)
[2018-01-15] MEDS: PRENATAL VITAMINS W/ FOLIC ACID TABLET (FP) PO SCH (10:17)
[2018-01-15] MEDS: ASPIRIN COATED 81 MG TABLET.EC PO SCH (10:17)
[2018-01-15] MEDS: THIAMINE HCL 100 MG TABLET (FP) PO SCH (21:18)
[2018-01-15] MEDS: MELATONIN 5 MG TABLETS PO PRN (21:18)
[2018-01-15] MEDS: traZODone HCL 50 MG TABLET (FP) PO SCH (21:19)
[2018-01-15] MEDS: SENNOSIDES 8.6MG TABLET (FP) PO SCH (21:19)
[2018-01-16] MEDS: ASPIRIN COATED 81 MG TABLET.EC PO SCH (09:57)
[2018-01-16] MEDS: amLODIPine BESYLATE 10 MG TABLET (FP) PO SCH (09:58)
[2018-01-16] MEDS: PRENATAL VITAMINS W/ FOLIC ACID TABLET (FP) PO SCH (09:58)
[2018-01-16] MEDS: LISINOPRIL 10 MG TABLET (FP) PO SCH (09:58)
[2018-01-16] MEDS: ATORVASTATIN CA 20 MG TABLET (FP) PO SCH (09:58)
[2018-01-16] MEDS: NICOTINE 14 MG/24 HOURS TOPICAL PATCH TD SCH (09:59)
[2018-01-16] MEDS: traZODone HCL 50 MG TABLET (FP) PO SCH (21:22)
[2018-01-16] MEDS: THIAMINE HCL 100 MG TABLET (FP) PO SCH (21:22)
[2018-01-16] MEDS: SENNOSIDES 8.6MG TABLET (FP) PO SCH (21:22)
[2018-01-16] MEDS: MELATONIN 5 MG TABLETS PO PRN (21:22)
[2018-01-17] MEDS: ASPIRIN COATED 81 MG TABLET.EC PO SCH (10:13)
[2018-01-17] MEDS: ATORVASTATIN CA 20 MG TABLET (FP) PO SCH (10:13)
[2018-01-17] MEDS: PRENATAL VITAMINS W/ FOLIC ACID TABLET (FP) PO SCH (10:14)
[2018-01-17] MEDS: LISINOPRIL 10 MG TABLET (FP) PO SCH (10:14)
[2018-01-17] MEDS: amLODIPine BESYLATE 10 MG TABLET (FP) PO SCH (10:14)
[2018-01-17] MEDS: NICOTINE 14 MG/24 HOURS TOPICAL PATCH TD SCH (10:15)
[2018-01-17 14:39] LABS: HEMATOCRIT 36.3 % (32.4-45.2); HEMOGLOBIN 11.7 GM/dL (10.7-15.3); MCH 26.8 pg (25.7-33.7); MCHC 32.4 g/dl (32.0-36.0); MEAN CELL VOLUME 82.8 fl (80-96); MEAN PLT VOLUME 9.6 fl (7.5-11.1); PLATELET COUNT 412 K/MM3 (134-434); RBC 4.38 M/mm3 (3.60-5.2); RDW 15.2 % (11.6-15.6); WHITE BLOOD COUNT 10.4 K/mm3 (4.0-10.0)
[2018-01-17] MEDS: MELATONIN 5 MG TABLETS PO PRN (21:24)
[2018-01-17] MEDS: THIAMINE HCL 100 MG TABLET (FP) PO SCH (21:24)
[2018-01-17] MEDS: traZODone HCL 50 MG TABLET (FP) PO SCH (21:24)
[2018-01-17] MEDS: SENNOSIDES 8.6MG TABLET (FP) PO SCH (21:24)
[2018-01-18] MEDS: LISINOPRIL 10 MG TABLET (FP) PO SCH (10:19)
[2018-01-18] MEDS: PRENATAL VITAMINS W/ FOLIC ACID TABLET (FP) PO SCH (10:19)
[2018-01-18] MEDS: ATORVASTATIN CA 20 MG TABLET (FP) PO SCH (10:21)
[2018-01-18] MEDS: amLODIPine BESYLATE 10 MG TABLET (FP) PO SCH (10:21)
[2018-01-18] MEDS: ASPIRIN COATED 81 MG TABLET.EC PO SCH (10:21)
--- NOTE | 2018-01-18 10:33 | PN ---
[facility] Progress Note Note: CBC results stable. WBC 10.4. Patient afebrile and vital signs stable. Will continue to monitor clinically.
[2018-01-18] MEDS: NICOTINE 14 MG/24 HOURS TOPICAL PATCH TD SCH (11:04)
[2018-01-18] MEDS: MELATONIN 5 MG TABLETS PO PRN (21:33)
[2018-01-18] MEDS: SENNOSIDES 8.6MG TABLET (FP) PO SCH (21:33)
[2018-01-18] MEDS: traZODone HCL 50 MG TABLET (FP) PO SCH (21:33)
[2018-01-18] MEDS: THIAMINE HCL 100 MG TABLET (FP) PO SCH (21:34)
[2018-01-19] MEDS: ASPIRIN COATED 81 MG TABLET.EC PO SCH (09:38)
[2018-01-19] MEDS: ATORVASTATIN CA 20 MG TABLET (FP) PO SCH (09:38)
[2018-01-19] MEDS: NICOTINE 14 MG/24 HOURS TOPICAL PATCH TD SCH (09:39)
[2018-01-19] MEDS: amLODIPine BESYLATE 10 MG TABLET (FP) PO SCH (09:39)
[2018-01-19] MEDS: PRENATAL VITAMINS W/ FOLIC ACID TABLET (FP) PO SCH (09:39)
[2018-01-19] MEDS: LISINOPRIL 10 MG TABLET (FP) PO SCH (09:39)
[2018-01-19] MEDS: THIAMINE HCL 100 MG TABLET (FP) PO SCH (21:25)
[2018-01-19] MEDS: SENNOSIDES 8.6MG TABLET (FP) PO SCH (21:25)
[2018-01-19] MEDS: traZODone HCL 50 MG TABLET (FP) PO SCH (21:26)
[2018-01-19] MEDS: MELATONIN 5 MG TABLETS PO PRN (21:26)
[2018-01-20] MEDS: PRENATAL VITAMINS W/ FOLIC ACID TABLET (FP) PO SCH (10:01)
[2018-01-20] MEDS: ASPIRIN COATED 81 MG TABLET.EC PO SCH (10:01)
[2018-01-20] MEDS: ATORVASTATIN CA 20 MG TABLET (FP) PO SCH (10:01)
[2018-01-20] MEDS: amLODIPine BESYLATE 10 MG TABLET (FP) PO SCH (10:01)
[2018-01-20] MEDS: LISINOPRIL 10 MG TABLET (FP) PO SCH (10:01)
[2018-01-20] MEDS: NICOTINE 14 MG/24 HOURS TOPICAL PATCH TD SCH (10:02)
[2018-01-20] MEDS: THIAMINE HCL 100 MG TABLET (FP) PO SCH (21:21)
[2018-01-20] MEDS: traZODone HCL 50 MG TABLET (FP) PO SCH (21:21)
[2018-01-20] MEDS: SENNOSIDES 8.6MG TABLET (FP) PO SCH (21:21)
[2018-01-20] MEDS: MELATONIN 5 MG TABLETS PO PRN (21:22)
[2018-01-21] MEDS: LISINOPRIL 10 MG TABLET (FP) PO SCH (10:05)
[2018-01-21] MEDS: ATORVASTATIN CA 20 MG TABLET (FP) PO SCH (10:05)
[2018-01-21] MEDS: PRENATAL VITAMINS W/ FOLIC ACID TABLET (FP) PO SCH (10:05)
[2018-01-21] MEDS: ASPIRIN COATED 81 MG TABLET.EC PO SCH (10:05)
[2018-01-21] MEDS: NICOTINE 14 MG/24 HOURS TOPICAL PATCH TD SCH (10:06)
[2018-01-21] MEDS: amLODIPine BESYLATE 10 MG TABLET (FP) PO SCH (10:06)
[2018-01-21] MEDS: traZODone HCL 50 MG TABLET (FP) PO SCH (21:39)
[2018-01-21] MEDS: MELATONIN 5 MG TABLETS PO PRN (21:39)
[2018-01-21] MEDS: SENNOSIDES 8.6MG TABLET (FP) PO SCH (21:39)
[2018-01-21] MEDS: THIAMINE HCL 100 MG TABLET (FP) PO SCH (21:39)
[2018-01-22] MEDS: LISINOPRIL 10 MG TABLET (FP) PO SCH (09:39)
[2018-01-22] MEDS: PRENATAL VITAMINS W/ FOLIC ACID TABLET (FP) PO SCH (09:39)
[2018-01-22] MEDS: amLODIPine BESYLATE 10 MG TABLET (FP) PO SCH (09:39)
[2018-01-22] MEDS: ATORVASTATIN CA 20 MG TABLET (FP) PO SCH (09:39)
[2018-01-22] MEDS: NICOTINE 14 MG/24 HOURS TOPICAL PATCH TD SCH (09:39)
[2018-01-22] MEDS: ASPIRIN COATED 81 MG TABLET.EC PO SCH (09:39)
[2018-01-22] MEDS: THIAMINE HCL 100 MG TABLET (FP) PO SCH (21:40)
[2018-01-22] MEDS: traZODone HCL 50 MG TABLET (FP) PO SCH (21:40)
[2018-01-22] MEDS: SENNOSIDES 8.6MG TABLET (FP) PO SCH (21:40)
[2018-01-23] MEDS: PRENATAL VITAMINS W/ FOLIC ACID TABLET (FP) PO SCH (10:12)
[2018-01-23] MEDS: amLODIPine BESYLATE 10 MG TABLET (FP) PO SCH (10:12)
[2018-01-23] MEDS: ATORVASTATIN CA 20 MG TABLET (FP) PO SCH (10:12)
[2018-01-23] MEDS: ASPIRIN COATED 81 MG TABLET.EC PO SCH (10:12)
[2018-01-23] MEDS: LISINOPRIL 10 MG TABLET (FP) PO SCH (10:12)
[2018-01-23] MEDS: NICOTINE 14 MG/24 HOURS TOPICAL PATCH TD SCH (10:28)
[2018-01-23] MEDS: SENNOSIDES 8.6MG TABLET (FP) PO SCH (21:29)
[2018-01-23] MEDS: traZODone HCL 50 MG TABLET (FP) PO SCH (21:29)
[2018-01-23] MEDS: THIAMINE HCL 100 MG TABLET (FP) PO SCH (21:29)
[2018-01-23] MEDS: MELATONIN 5 MG TABLETS PO PRN (21:30)
[2018-01-24] MEDS: PRENATAL VITAMINS W/ FOLIC ACID TABLET (FP) PO SCH (09:48)
[2018-01-24] MEDS: ASPIRIN COATED 81 MG TABLET.EC PO SCH (09:48)
[2018-01-24] MEDS: amLODIPine BESYLATE 10 MG TABLET (FP) PO SCH (09:48)
[2018-01-24] MEDS: LISINOPRIL 10 MG TABLET (FP) PO SCH (09:48)
[2018-01-24] MEDS: ATORVASTATIN CA 20 MG TABLET (FP) PO SCH (09:48)
[2018-01-24] MEDS: NICOTINE 14 MG/24 HOURS TOPICAL PATCH TD SCH (09:48)
[2018-01-24] MEDS: traZODone HCL 50 MG TABLET (FP) PO SCH (21:55)
[2018-01-24] MEDS: MELATONIN 5 MG TABLETS PO PRN (21:55)
[2018-01-24] MEDS: SENNOSIDES 8.6MG TABLET (FP) PO SCH (21:55)
[2018-01-24] MEDS: THIAMINE HCL 100 MG TABLET (FP) PO SCH (21:56)
[2018-01-25] MEDS: ATORVASTATIN CA 20 MG TABLET (FP) PO SCH (10:36)
[2018-01-25] MEDS: ASPIRIN COATED 81 MG TABLET.EC PO SCH (10:36)
[2018-01-25] MEDS: PRENATAL VITAMINS W/ FOLIC ACID TABLET (FP) PO SCH (10:36)
[2018-01-25] MEDS: LISINOPRIL 10 MG TABLET (FP) PO SCH (10:36)
[2018-01-25] MEDS: amLODIPine BESYLATE 10 MG TABLET (FP) PO SCH (10:36)
[2018-01-25] MEDS: NICOTINE 14 MG/24 HOURS TOPICAL PATCH TD SCH (10:37)
--- NOTE | 2018-01-25 16:10 | PN ---
Psychiatric Progress Note Vital Signs: Vital Signs Period Temp Pulse Resp BP Sys/Rizo Pulse Ox Last 24 Hr 98.0 F 81-101 16-18 114-146/73-79 Date of Session: 01/25/18 Chief Complaint:: Noel not sleeping ,i need my Benadryl. HPI: Significant for Alcohol and Cocaine dependence comorbid with Substance induced mood disorder. ROS: Status post CVA,Hypelipidemia. Current Medications: Active Medications Generic Name Dose Route Start Last Admin Trade Name Freq PRN Reason Stop Dose Admin Acetaminophen 650 mg 01/10/18 13:14 01/13/18 09:52 Tylenol - PO 650 mg Q4H PRN Administration FEVER Al Hydroxide/Mg Hydroxide 30 ml 01/10/18 13:14 Mylanta Oral Suspension - PO Q6H PRN DYSPEPSIA Amlodipine Besylate 10 mg 01/11/18 10:00 01/25/18 10:36 Norvasc - PO 10 mg DAILY MIRTHA Administration Aspirin 81 mg 01/11/18 10:00 01/25/18 10:36 Ecotrin - PO 81 mg DAILY MIRTHA Administration Atorvastatin Calcium 20 mg 01/11/18 22:00 01/25/18 10:36 Lipitor - PO 20 mg DAILY MIRTHA Administration Colloidal Oatmeal 1 applic 01/11/18 13:06 01/11/18 13:37 Aveeno Soap - TP 1 applic DAILY PRN Administration HYGEINE Diphenhydramine HCl 50 mg 01/25/18 16:02 Benadryl - PO HS PRN INSOMNIA Docusate Sodium 100 mg 01/10/18 13:16 01/19/18 21:26 Colace - PO 100 mg BID PRN Administration CONSTIPATION Eucalyptus/Menthol/Phenol/Sorbitol 1 each 01/10/18 13:14 Cepastat Lozenge - MM Q4H PRN SORE THROAT Guaifenesin 10 ml 01/10/18 13:14 01/13/18 10:27 Robitussin Dm - PO 10 ml Q6H PRN Administration COUGH Lisinopril 30 mg 01/11/18 10:00 01/25/18 10:36 Prinivil PO 30 mg DAILY MIRTHA Administration Loperamide HCl 4 mg 01/10/18 13:14 Imodium - PO Q6H PRN DIARRHEA Magnesium Citrate 300 ml 01/10/18 13:14 Citroma - PO Q48H PRN CONSTIPATION Magnesium Hydroxide 30 ml 01/10/18 13:14 Milk Of Magnesia - PO DAILY PRN CONSTIPATION Melatonin 5 mg 01/10/18 22:00 01/24/18 21:55 Melatonin PO 5 mg HS PRN Administration INSOMNIA Nicotine 14 mg 01/10/18 13:55 01/25/18 10:37 Nicoderm Patch - TD Not Given DAILY MIRTHA Nicotine Polacrilex 2 mg 01/10/18 13:14 Nicorette Gum - BUC Q2H PRN NICOTINE REPLACEMENT RX Multivit/Folic Acid/Iron 1 tab 01/11/18 10:00 01/25/18 10:36 Vitamins (Sjr) - PO 1 tab DAILY MIRTHA Administration Pseudoephedrine/Triprolidine 1 combo 01/10/18 13:14 01/23/18 10:14 Actifed - PO 1 combo TID PRN Administration NASAL CONGESTION Senna 2 tab 01/10/18 22:00 01/24/18 21:55 Senna - PO 2 tab HS MIRTHA Administration Thiamine HCl 100 mg 01/10/18 22:00 01/24/18 21:56 Vitamin B1 - PO 100 mg HS MIRTHA Administration Trazodone HCl 50 mg 01/11/18 22:00 01/24/18 21:55 Desyrel - PO 50 mg HS MIRTHA Administration Current Side Effect: No Lab tests ordered: No Lab tests reviewed: Yes Provider note:: Chart was revuewed, attending notes appreciated, patient was seen to address her ongoing sleeping difficulties-takes time to fall asleep and interrupted sleeping pattern.Treatment plan including medication managemnt has been discussed with the patient .Patient will continue trazodone 50 mg po hs and melatonin 5 mg po hs for insomnia.Properties of Benadryl has been discussed with the patient including side effects,benefits and dose adjustment.Add Benadryl 50 mg po hs prn for insomnia. Supportive therapy provided. Total face to face time:: 30 Mental Status Exam - Mental Status Exam Alert and Oriented to: Time, Place, Person Cognitive Function: Grossly Intact Patient Appearance: Well Groomed Mood: Euthymic Affect: Mood Congruent Patient Behavior: Cooperative Speech Pattern: Clear Voice Loudness: Normal Thought Process: Goal Oriented Thought Disorder: Not Present Hallucinations: Denies Suicidal Ideation: Denies Homicidal Ideation: Denies Insight/Judgement: Fair Sleep: Difficulty falling asleep Appetite: Fair Muscle strength/Tone: Mild Hypertonicity Gait/Station: Hemiparetic Psychiatric Treatment Plan - Problem List (1) Alcohol dependence Current Visit: Yes (2) Cocaine dependence Current Visit: Yes (3) Nicotine dependence Current Visit: Yes Qualifiers: Nicotine product type: cigarettes Substance use status: in withdrawal Qualified Code(s): F17.213 - Nicotine dependence, cigarettes, with withdrawal (4) Substance-induced sleep disorder Current Visit: Yes (5) Hypercholesteremia Current Visit: Yes (6) H/O: stroke with residual effects Current Visit: Yes (7) Hypertension Current Visit: Yes Qualifiers: Hypertension type: essential hypertension Qualified Code(s): I10 - Essential (primary) hypertension (8) Positive PPD, treated Current Visit: Yes (9) Status post CVA Current Visit: Yes Comment: SLIGHT RIGHT SIDE WEAKNESS (10) History of anemia Current Visit: No
[2018-01-25] MEDS: traZODone HCL 50 MG TABLET (FP) PO SCH (21:28)
[2018-01-25] MEDS: THIAMINE HCL 100 MG TABLET (FP) PO SCH (21:28)
[2018-01-25] MEDS: SENNOSIDES 8.6MG TABLET (FP) PO SCH (21:28)
[2018-01-25] MEDS: diphenhydrAMINE HCL 25 MG CAPSULE (FP) PO PRN (21:29)
[2018-01-26] MEDS: PRENATAL VITAMINS W/ FOLIC ACID TABLET (FP) PO SCH (10:24)
[2018-01-26] MEDS: LISINOPRIL 10 MG TABLET (FP) PO SCH (10:24)
[2018-01-26] MEDS: ASPIRIN COATED 81 MG TABLET.EC PO SCH (10:25)
[2018-01-26] MEDS: ATORVASTATIN CA 20 MG TABLET (FP) PO SCH (10:25)
[2018-01-26] MEDS: amLODIPine BESYLATE 10 MG TABLET (FP) PO SCH (10:25)
[2018-01-26] MEDS: NICOTINE 14 MG/24 HOURS TOPICAL PATCH TD SCH (10:25)
[2018-01-26] MEDS: THIAMINE HCL 100 MG TABLET (FP) PO SCH (21:55)
[2018-01-26] MEDS: diphenhydrAMINE HCL 25 MG CAPSULE (FP) PO PRN (21:55)
[2018-01-26] MEDS: traZODone HCL 50 MG TABLET (FP) PO SCH (21:57)
[2018-01-26] MEDS: SENNOSIDES 8.6MG TABLET (FP) PO SCH (21:57)
[2018-01-27] MEDS: NICOTINE 14 MG/24 HOURS TOPICAL PATCH TD SCH (10:22)
[2018-01-27] MEDS: ASPIRIN COATED 81 MG TABLET.EC PO SCH (10:23)
[2018-01-27] MEDS: LISINOPRIL 10 MG TABLET (FP) PO SCH (10:23)
[2018-01-27] MEDS: ATORVASTATIN CA 20 MG TABLET (FP) PO SCH (10:23)
[2018-01-27] MEDS: amLODIPine BESYLATE 10 MG TABLET (FP) PO SCH (10:23)
[2018-01-27] MEDS: PRENATAL VITAMINS W/ FOLIC ACID TABLET (FP) PO SCH (10:23)
[2018-01-27] MEDS: traZODone HCL 50 MG TABLET (FP) PO SCH (21:42)
[2018-01-27] MEDS: THIAMINE HCL 100 MG TABLET (FP) PO SCH (21:42)
[2018-01-27] MEDS: diphenhydrAMINE HCL 25 MG CAPSULE (FP) PO PRN (21:42)
[2018-01-27] MEDS: SENNOSIDES 8.6MG TABLET (FP) PO SCH (21:43)
[2018-01-28] MEDS: LISINOPRIL 10 MG TABLET (FP) PO SCH (10:24)
[2018-01-28] MEDS: PRENATAL VITAMINS W/ FOLIC ACID TABLET (FP) PO SCH (10:24)
[2018-01-28] MEDS: ATORVASTATIN CA 20 MG TABLET (FP) PO SCH (10:25)
[2018-01-28] MEDS: amLODIPine BESYLATE 10 MG TABLET (FP) PO SCH (10:25)
[2018-01-28] MEDS: ASPIRIN COATED 81 MG TABLET.EC PO SCH (10:25)
[2018-01-28] MEDS: NICOTINE 14 MG/24 HOURS TOPICAL PATCH TD SCH (10:26)
[2018-01-28] MEDS: THIAMINE HCL 100 MG TABLET (FP) PO SCH (21:38)
[2018-01-28] MEDS: traZODone HCL 50 MG TABLET (FP) PO SCH (21:38)
[2018-01-28] MEDS: diphenhydrAMINE HCL 25 MG CAPSULE (FP) PO PRN (21:39)
[2018-01-28] MEDS: SENNOSIDES 8.6MG TABLET (FP) PO SCH (22:00)
[2018-01-29] MEDS: NICOTINE 14 MG/24 HOURS TOPICAL PATCH TD SCH (10:44)
[2018-01-29] MEDS: PRENATAL VITAMINS W/ FOLIC ACID TABLET (FP) PO SCH (10:44)
[2018-01-29] MEDS: amLODIPine BESYLATE 10 MG TABLET (FP) PO SCH (10:45)
[2018-01-29] MEDS: ASPIRIN COATED 81 MG TABLET.EC PO SCH (10:45)
[2018-01-29] MEDS: ATORVASTATIN CA 20 MG TABLET (FP) PO SCH (10:45)
[2018-01-29] MEDS: LISINOPRIL 10 MG TABLET (FP) PO SCH (10:45)
[2018-01-29] MEDS: THIAMINE HCL 100 MG TABLET (FP) PO SCH (21:32)
[2018-01-29] MEDS: traZODone HCL 50 MG TABLET (FP) PO SCH (21:33)
[2018-01-29] MEDS: diphenhydrAMINE HCL 25 MG CAPSULE (FP) PO PRN (21:33)
[2018-01-29] MEDS: SENNOSIDES 8.6MG TABLET (FP) PO SCH (21:33)
[2018-01-30] MEDS: LISINOPRIL 10 MG TABLET (FP) PO SCH (10:11)
[2018-01-30] MEDS: ASPIRIN COATED 81 MG TABLET.EC PO SCH (10:11)
[2018-01-30] MEDS: PRENATAL VITAMINS W/ FOLIC ACID TABLET (FP) PO SCH (10:11)
[2018-01-30] MEDS: amLODIPine BESYLATE 10 MG TABLET (FP) PO SCH (10:11)
[2018-01-30] MEDS: ATORVASTATIN CA 20 MG TABLET (FP) PO SCH (10:11)
[2018-01-30] MEDS: NICOTINE 14 MG/24 HOURS TOPICAL PATCH TD SCH (10:12)
[2018-01-30] MEDS: THIAMINE HCL 100 MG TABLET (FP) PO SCH (21:40)
[2018-01-30] MEDS: traZODone HCL 50 MG TABLET (FP) PO SCH (21:40)
[2018-01-30] MEDS: diphenhydrAMINE HCL 25 MG CAPSULE (FP) PO PRN (21:41)
[2018-01-30] MEDS: SENNOSIDES 8.6MG TABLET (FP) PO SCH (21:42)
[2018-01-31] MEDS: LISINOPRIL 10 MG TABLET (FP) PO SCH (10:20)
[2018-01-31] MEDS: ATORVASTATIN CA 20 MG TABLET (FP) PO SCH (10:20)
[2018-01-31] MEDS: ASPIRIN COATED 81 MG TABLET.EC PO SCH (10:20)
[2018-01-31] MEDS: amLODIPine BESYLATE 10 MG TABLET (FP) PO SCH (10:20)
[2018-01-31] MEDS: PRENATAL VITAMINS W/ FOLIC ACID TABLET (FP) PO SCH (10:21)
[2018-01-31] MEDS: NICOTINE 14 MG/24 HOURS TOPICAL PATCH TD SCH (10:21)
[2018-01-31] MEDS: traZODone HCL 50 MG TABLET (FP) PO SCH (21:36)
[2018-01-31] MEDS: THIAMINE HCL 100 MG TABLET (FP) PO SCH (21:36)
[2018-01-31] MEDS: diphenhydrAMINE HCL 25 MG CAPSULE (FP) PO PRN (21:36)
[2018-01-31] MEDS: SENNOSIDES 8.6MG TABLET (FP) PO SCH (21:37)
[2018-02-01] MEDS: PRENATAL VITAMINS W/ FOLIC ACID TABLET (FP) PO SCH (10:35)
[2018-02-01] MEDS: amLODIPine BESYLATE 10 MG TABLET (FP) PO SCH (10:36)
[2018-02-01] MEDS: ATORVASTATIN CA 20 MG TABLET (FP) PO SCH (10:36)
[2018-02-01] MEDS: ASPIRIN COATED 81 MG TABLET.EC PO SCH (10:36)
[2018-02-01] MEDS: NICOTINE 14 MG/24 HOURS TOPICAL PATCH TD SCH (10:36)
[2018-02-01] MEDS: LISINOPRIL 10 MG TABLET (FP) PO SCH (10:36)
[2018-02-01] MEDS: THIAMINE HCL 100 MG TABLET (FP) PO SCH (21:52)
[2018-02-01] MEDS: SENNOSIDES 8.6MG TABLET (FP) PO SCH (21:53)
[2018-02-01] MEDS: diphenhydrAMINE HCL 25 MG CAPSULE (FP) PO PRN (21:54)
[2018-02-01] MEDS: traZODone HCL 50 MG TABLET (FP) PO SCH (21:55)
[2018-02-02] MEDS: NICOTINE 14 MG/24 HOURS TOPICAL PATCH TD SCH (09:24)
[2018-02-02] MEDS: LISINOPRIL 10 MG TABLET (FP) PO SCH (09:24)
[2018-02-02] MEDS: PRENATAL VITAMINS W/ FOLIC ACID TABLET (FP) PO SCH (09:24)
[2018-02-02] MEDS: ATORVASTATIN CA 20 MG TABLET (FP) PO SCH (09:25)
[2018-02-02] MEDS: ASPIRIN COATED 81 MG TABLET.EC PO SCH (09:25)
[2018-02-02] MEDS: amLODIPine BESYLATE 10 MG TABLET (FP) PO SCH (09:25)
[2018-02-02] MEDS: THIAMINE HCL 100 MG TABLET (FP) PO SCH (21:56)
[2018-02-02] MEDS: traZODone HCL 50 MG TABLET (FP) PO SCH (21:56)
[2018-02-02] MEDS: SENNOSIDES 8.6MG TABLET (FP) PO SCH (21:57)
[2018-02-02] MEDS: diphenhydrAMINE HCL 25 MG CAPSULE (FP) PO PRN (21:57)
[2018-02-03] MEDS: ATORVASTATIN CA 20 MG TABLET (FP) PO SCH (09:48)
[2018-02-03] MEDS: PRENATAL VITAMINS W/ FOLIC ACID TABLET (FP) PO SCH (09:48)
[2018-02-03] MEDS: amLODIPine BESYLATE 10 MG TABLET (FP) PO SCH (09:48)
[2018-02-03] MEDS: ASPIRIN COATED 81 MG TABLET.EC PO SCH (09:48)
[2018-02-03] MEDS: LISINOPRIL 10 MG TABLET (FP) PO SCH (09:48)
[2018-02-03] MEDS: NICOTINE 14 MG/24 HOURS TOPICAL PATCH TD SCH (09:49)
[2018-02-03] MEDS: THIAMINE HCL 100 MG TABLET (FP) PO SCH (21:27)
[2018-02-03] MEDS: traZODone HCL 50 MG TABLET (FP) PO SCH (21:27)
[2018-02-03] MEDS: SENNOSIDES 8.6MG TABLET (FP) PO SCH (21:28)
[2018-02-03] MEDS: diphenhydrAMINE HCL 25 MG CAPSULE (FP) PO PRN (21:28)
[2018-02-04] MEDS: ATORVASTATIN CA 20 MG TABLET (FP) PO SCH (10:55)
[2018-02-04] MEDS: NICOTINE 14 MG/24 HOURS TOPICAL PATCH TD SCH (10:55)
[2018-02-04] MEDS: LISINOPRIL 10 MG TABLET (FP) PO SCH (10:55)
[2018-02-04] MEDS: ASPIRIN COATED 81 MG TABLET.EC PO SCH (10:55)
[2018-02-04] MEDS: PRENATAL VITAMINS W/ FOLIC ACID TABLET (FP) PO SCH (10:55)
[2018-02-04] MEDS: amLODIPine BESYLATE 10 MG TABLET (FP) PO SCH (10:57)
[2018-02-04] MEDS: traZODone HCL 50 MG TABLET (FP) PO SCH (21:35)
[2018-02-04] MEDS: THIAMINE HCL 100 MG TABLET (FP) PO SCH (21:35)
[2018-02-04] MEDS: SENNOSIDES 8.6MG TABLET (FP) PO SCH (21:36)
[2018-02-04] MEDS: diphenhydrAMINE HCL 25 MG CAPSULE (FP) PO PRN (21:36)
[2018-02-05] MEDS: LISINOPRIL 10 MG TABLET (FP) PO SCH (09:38)
[2018-02-05] MEDS: ASPIRIN COATED 81 MG TABLET.EC PO SCH (09:38)
[2018-02-05] MEDS: PRENATAL VITAMINS W/ FOLIC ACID TABLET (FP) PO SCH (09:38)
[2018-02-05] MEDS: ATORVASTATIN CA 20 MG TABLET (FP) PO SCH (09:38)
[2018-02-05] MEDS: NICOTINE 14 MG/24 HOURS TOPICAL PATCH TD SCH (09:39)
[2018-02-05] MEDS: amLODIPine BESYLATE 10 MG TABLET (FP) PO SCH (09:44)
[2018-02-05] MEDS: diphenhydrAMINE HCL 25 MG CAPSULE (FP) PO PRN (21:50)
[2018-02-05] MEDS: traZODone HCL 50 MG TABLET (FP) PO SCH (21:50)
[2018-02-05] MEDS: SENNOSIDES 8.6MG TABLET (FP) PO SCH (21:51)
[2018-02-05] MEDS: THIAMINE HCL 100 MG TABLET (FP) PO SCH (21:51)
[2018-02-06] MEDS: PRENATAL VITAMINS W/ FOLIC ACID TABLET (FP) PO SCH (09:38)
[2018-02-06] MEDS: LISINOPRIL 10 MG TABLET (FP) PO SCH (09:38)
[2018-02-06] MEDS: ASPIRIN COATED 81 MG TABLET.EC PO SCH (09:38)
[2018-02-06] MEDS: ATORVASTATIN CA 20 MG TABLET (FP) PO SCH (09:38)
[2018-02-06] MEDS: amLODIPine BESYLATE 10 MG TABLET (FP) PO SCH (09:38)
[2018-02-06] MEDS: NICOTINE 14 MG/24 HOURS TOPICAL PATCH TD SCH (09:39)
--- NOTE | 2018-02-06 15:17 | PN ---
Psychiatric Progress Note Vital Signs: Vital Signs Period Temp Pulse Resp BP Sys/Rizo Pulse Ox Last 24 Hr 97.8 F 86-97 17-18 136-149/81-82 Date of Session: 02/06/18 Chief Complaint:: Discharge visit HPI: Patient addressed alcohol and Cocaine dependence comoirbid with Substance induced sleep/ mood disorder. ROS: Significant for HTN,H/O stroke,Hyperlipidemia. Current Medications: Active Medications Generic Name Dose Route Start Last Admin Trade Name Freq PRN Reason Stop Dose Admin Acetaminophen 650 mg 01/10/18 13:14 01/13/18 09:52 Tylenol - PO 650 mg Q4H PRN Administration FEVER Al Hydroxide/Mg Hydroxide 30 ml 01/10/18 13:14 Mylanta Oral Suspension - PO Q6H PRN DYSPEPSIA Amlodipine Besylate 10 mg 01/11/18 10:00 02/06/18 09:38 Norvasc - PO 10 mg DAILY MIRTHA Administration Aspirin 81 mg 01/11/18 10:00 02/06/18 09:38 Ecotrin - PO 81 mg DAILY MIRTHA Administration Atorvastatin Calcium 20 mg 01/11/18 22:00 02/06/18 09:38 Lipitor - PO 20 mg DAILY MIRTHA Administration Colloidal Oatmeal 1 applic 01/11/18 13:06 01/11/18 13:37 Aveeno Soap - TP 1 applic DAILY PRN Administration HYGEINE Diphenhydramine HCl 50 mg 01/25/18 22:00 02/05/18 21:50 Benadryl - PO 50 mg HS PRN Administration INSOMNIA Docusate Sodium 100 mg 01/10/18 13:16 01/19/18 21:26 Colace - PO 100 mg BID PRN Administration CONSTIPATION Eucalyptus/Menthol/Phenol/Sorbitol 1 each 01/10/18 13:14 Cepastat Lozenge - MM Q4H PRN SORE THROAT Guaifenesin 10 ml 01/10/18 13:14 01/13/18 10:27 Robitussin Dm - PO 10 ml Q6H PRN Administration COUGH Lisinopril 30 mg 01/11/18 10:00 02/06/18 09:38 Prinivil PO 30 mg DAILY MIRTHA Administration Loperamide HCl 4 mg 01/10/18 13:14 Imodium - PO Q6H PRN DIARRHEA Magnesium Citrate 300 ml 01/10/18 13:14 Citroma - PO Q48H PRN CONSTIPATION Magnesium Hydroxide 30 ml 01/10/18 13:14 Milk Of Magnesia - PO DAILY PRN CONSTIPATION Nicotine 14 mg 01/10/18 13:55 02/06/18 09:39 Nicoderm Patch - TD Not Given DAILY MIRTHA Nicotine Polacrilex 2 mg 01/10/18 13:14 Nicorette Gum - BUC Q2H PRN NICOTINE REPLACEMENT RX Multivit/Folic Acid/Iron 1 tab 01/11/18 10:00 02/06/18 09:38 Vitamins (Sjr) - PO 1 tab DAILY MIRTHA Administration Pseudoephedrine/Triprolidine 1 combo 01/10/18 13:14 01/23/18 10:14 Actifed - PO 1 combo TID PRN Administration NASAL CONGESTION Senna 2 tab 01/10/18 22:00 02/05/18 21:51 Senna - PO 2 tab HS MIRTHA Administration Thiamine HCl 100 mg 01/10/18 22:00 02/05/18 21:51 Vitamin B1 - PO 100 mg HS MIRTHA Administration Trazodone HCl 50 mg 01/11/18 22:00 02/05/18 21:50 Desyrel - PO 50 mg HS MIRTHA Administration Current Side Effect: No Lab tests ordered: No Lab tests reviewed: Yes Provider note:: Patient will complete this program tomorrow 02/07/18.She has met her treatment goals and will continue to address her issues on outpatient basis at [facility].Patient reports Trazodone 50 mg po hs helps to cope with sleeping difficulties.Script for 30 days provided. Patient identifies areas of difficulties.she focuses on insight gained in treatment including importance of changing attitude and ways she plans to utilize supports her recovery. patient is stable for discharge tomorrow 02/07/18. Total face to face time:: 30 Mental Status Exam - Mental Status Exam Alert and Oriented to: Time, Place, Person Cognitive Function: Grossly Intact Patient Appearance: Well Groomed Mood: Hopeful, Euthymic Affect: Appropriate, Mood Congruent Patient Behavior: Cooperative Speech Pattern: Clear Voice Loudness: Normal Thought Process: Goal Oriented Thought Disorder: Not Present Hallucinations: Denies Suicidal Ideation: Denies Homicidal Ideation: Denies Insight/Judgement: Fair Sleep: Fair Appetite: Fair Muscle strength/Tone: Normal Gait/Station: Normal Psychiatric Treatment Plan - Problem List (1) Alcohol dependence Current Visit: Yes (2) Cocaine dependence Current Visit: Yes (3) Nicotine dependence Current Visit: Yes Qualifiers: Nicotine product type: cigarettes Substance use status: in withdrawal Qualified Code(s): F17.213 - Nicotine dependence, cigarettes, with withdrawal (4) Substance-induced sleep disorder Current Visit: Yes (5) Hypercholesteremia Current Visit: Yes (6) H/O: stroke with residual effects Current Visit: Yes (7) Hypertension Current Visit: Yes Qualifiers: Hypertension type: essential hypertension Qualified Code(s): I10 - Essential (primary) hypertension (8) Positive PPD, treated Current Visit: Yes (9) Status post CVA Current Visit: Yes Comment: SLIGHT RIGHT SIDE WEAKNESS (10) History of anemia Current Visit: Yes
[2018-02-06] MEDS: traZODone HCL 50 MG TABLET (FP) PO SCH (21:47)
[2018-02-06] MEDS: diphenhydrAMINE HCL 25 MG CAPSULE (FP) PO PRN (21:47)
[2018-02-06] MEDS: SENNOSIDES 8.6MG TABLET (FP) PO SCH (21:48)
[2018-02-06] MEDS: THIAMINE HCL 100 MG TABLET (FP) PO SCH (21:48)
[2018-02-07 06:59] VITALS: BP 141/86; PULSE 82; TEMP 97.7
[2018-02-07] MEDS: LISINOPRIL 10 MG TABLET (FP) PO SCH (09:06)
[2018-02-07] MEDS: ASPIRIN COATED 81 MG TABLET.EC PO SCH (09:06)
[2018-02-07] MEDS: PRENATAL VITAMINS W/ FOLIC ACID TABLET (FP) PO SCH (09:06)
[2018-02-07] MEDS: ATORVASTATIN CA 20 MG TABLET (FP) PO SCH (09:06)
[2018-02-07] MEDS: amLODIPine BESYLATE 10 MG TABLET (FP) PO SCH (09:06)
[2018-02-07] MEDS: NICOTINE 14 MG/24 HOURS TOPICAL PATCH TD SCH (09:06)
== END 2018-02-07 09:36 | disposition home or self-care (01) | DRG 772 ==
LOC: YASAS 10:22 → Y3E 13:45
PROVIDERS: ADMIT Psychiatry & Neurology Psychiatry; ATTEND Psychiatry & Neurology Psychiatry
PROC: HZ42ZZZ Group Counseling for Substance Abuse Treatment, Cognitive-Behavioral (ICD-10-PCS; principal; 2018-01-10)
DX: F10.20 Alcohol dependence, uncomplicated (principal); F14.20 Cocaine dependence, uncomplicated; F17.210 Nicotine dependence, cigarettes, uncomplicated; F19.282 Other psychoactive substance dependence with psychoactive substance-induced sleep disorder; I10 Essential (primary) hypertension; E78.00 Pure hypercholesterolemia, unspecified; K59.00 Constipation, unspecified; R76.11 Nonspecific reaction to tuberculin skin test without active tuberculosis; I69.851 Hemiplegia and hemiparesis following other cerebrovascular disease affecting right dominant side; Z86.2 Personal history of diseases of the blood and blood-forming organs and certain disorders involving the immune mechanism
CPT/HCPCS: 36415; 71046-TC-FY; 80053; 81003; 85027; 86593; 93005; 93010